=== PATIENT | male | born 2000 | race Caucasian/White ===

== ENCOUNTER 2022-03-23 17:22 | Emergency (ER) | payer BC ==
[~2022-03-23] VITALS: Ht 182.9 cm; Wt 86.2 kg
[~2022-03-23 17:22] MED LIST: AMOX500 PO; IBUP600 PO
== END 2022-03-23 19:28 | disposition home or self-care (01) ==
LOC: ER 17:22
DX: S91.311A Laceration without foreign body, right foot, initial encounter (principal); W26.8XXA Contact with other sharp object(s), not elsewhere classified, initial encounter
CPT/HCPCS: 90714